=== PATIENT | female | born 1955 | race American Indian/Alaskan Native ===

== ENCOUNTER 2018-07-07 04:35 | Emergency (ER) | payer OTHER ==
[2018-07-07 04:49] VITALS: BP 102/67
[2018-07-07] MEDS ORDERED: IBUPROFEN PO ONE ×2 (05:15)
[2018-07-07] MEDS ORDERED: NORCO 5/325 ONE (05:15)
--- NOTE | 2018-07-07 05:29 | Emergency Department Report ---
ED Fall HPI - General Chief Complaint: Extremity Injury, Lower Stated Complaint: R ANKLE PAIN Source: patient Mode of arrival: Wheelchair - History of Present Illness Initial Comments: This is a 63-year-old -[place] female that presents to the emergency room with pain and swelling to right ankle status post fall 2 hours ago. Patient states she awoke to use the restroom and fell. Patient states right foot was wedged under vanity in restroom. She forced right foot out and noticed obvious deformity to the right lateral side of ankle. She applied ice for one hour with no improvement of swelling. States pain is worse with weightbearing. Patient denies hitting head, loss of consciousness, or paresthesia. 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 Place Fall Occurred: home Loss of Consciousness: none Prolonged Down Time?: no Symptoms Prior to Fall: none Location - Extremities: Right: Ankle Severity: severe Severity scale (0 -10): 10 Quality: aching Context: tripped/slipped Associated Symptoms: denies - Related Data Previous Rx's Medication Instructions Recorded Last Taken Type Ibuprofen [Motrin 800 MG tab] 800 mg PO Q8HR PRN #15 tablet 07/07/18 Unknown Rx traMADol [Ultram 50 MG tab] 50 mg PO Q6HR PRN #12 tablet 07/07/18 Unknown Rx Allergies Allergy/AdvReac Type Severity Reaction Status Date / Time No Known Allergies Allergy Verified 07/07/18 05:16 ED Review of Systems ROS: Stated complaint: R ANKLE PAIN Other details as noted in HPI Constitutional: denies: chills, fever Respiratory: denies: cough, shortness of breath, wheezing Cardiovascular: denies: chest pain, palpitations Gastrointestinal: denies: abdominal pain, nausea, diarrhea Musculoskeletal: joint swelling (right ankle), arthralgia (right ankle). denies: back pain Skin: denies: rash, lesions Neurological: denies: headache, weakness, paresthesias Psychiatric: denies: anxiety, depression ED Past Medical Hx - Past Medical History Previous Medical History?: No - Surgical History Past Surgical History?: Yes Additional Surgical History: hysterectomy. esophageal sx - Social History Smoking Status: Current Every Day Smoker Substance Use Type: Alcohol - Medications Home Medications: Home Medications Medication Instructions Recorded Confirmed Last Taken Type Ibuprofen [Motrin 800 MG tab] 800 mg PO Q8HR PRN #15 tablet 07/07/18 Unknown Rx traMADol [Ultram 50 MG tab] 50 mg PO Q6HR PRN #12 tablet 07/07/18 Unknown Rx ED Physical Exam - General Limitations: No Limitations General appearance: alert, in no apparent distress - Respiratory Respiratory exam: Present: normal lung sounds bilaterally. Absent: respiratory distress - Cardiovascular Cardiovascular Exam: Present: regular rate, normal rhythm. Absent: systolic murmur, diastolic murmur, rubs, gallop - GI/Abdominal GI/Abdominal exam: Present: soft, normal bowel sounds - Expanded Lower Extremity Exam Right Hip exam: Present: normal inspection, full ROM Upper Leg exam: Present: normal inspection, full ROM Knee exam: Present: normal inspection, full ROM Lower Leg exam: Present: normal inspection, full ROM Ankle exam: Present: tenderness (tenderness and swelling below the lateral malleolus), swelling, deformity, erythema. Absent: full ROM (Limited range of motion secondary pain), abrasion, laceration, ecchymosis, crepidus, dislocation, anterior draw sign Foot/Toe exam: Present: normal inspection, full ROM Neuro vascular tendon exam: Present: no vascular compromise Gait: Positive: observed and limited by pain - Neurological Exam Neurological exam: Present: alert, oriented X3 - Psychiatric Psychiatric exam: Present: normal affect, normal mood - Skin Skin exam: Present: warm, dry, intact, normal color. Absent: rash ED Course Vital Signs 07/07/18 04:38 Temperature 97.8 F Pulse Rate 96 H Respiratory 20 Rate Blood Pressure 102/67 O2 Sat by Pulse 100 Oximetry ED Medical Decision Making - Radiology Data Radiology results: report reviewed PROCEDURE: RIGHT ANKLE, 3 VIEWS TECHNIQUE: RIGHT ankle radiographs, AP, lateral, and oblique views. CPT 73517 HISTORY: Trauma COMPARISONS: None . FINDINGS: Fracture (s) and/or Dislocation(s): There is a fracture of the distal fibula. . Alignment: Normal . Joint space(s): There is slight widening of the medial aspect of the ankle mortise. . Soft tissues: There is mild generalized soft tissue swelling. There is no mass. . Bone mineralization: Normal . Foreign bodies: None . Calcaneal spurring: None . IMPRESSION: There is a fracture of the distal fibula. . There is slight widening of the medial aspect of the ankle mortise. . There is mild generalized soft tissue swelling. There is no mass. - Medical Decision Making Patient was examined by me. Vitals are normal and patient is in no acute distress. Moderate swelling and obvious deformity of the right lateral malleolus on focal exam. Given Gilliam 5/325 mg by mouth once a ER. Obtained a x-ray of right ankle. X-rays dictated by radiologist and report reviewed by myself. There is a fracture of the distal fibula. There is slight widening of the medial aspect of the ankle mortise. There is mild generalized soft tissue swelling. There is no mass. Patient informed of results. An anterior/posterior splint to the right lower extremity. Patient is to use some personal crutches. Instructed to start nonweightbearing to right lower extremity. Referral to orthopedics for continued care. Start ibuprofen and Tramadol for pain. Plan discussed with patient to discharge home and treat outpatient. He agrees with ER plan. Patient discharged home in stable condition. Follow up with PCP in 2-3 days. Critical care attestation.: If time is entered above; I have spent that time in minutes in the direct care of this critically ill patient, excluding procedure time. ED Disposition Clinical Impression: Acute right ankle pain Fracture of distal fibula Qualifiers: Encounter type: initial encounter Fracture type: closed Fracture morphology: other fracture Laterality: right Qualified Code(s): S82.831A - Other fracture of upper and lower end of right fibula, initial encounter for closed fracture Fall Qualifiers: Encounter type: initial encounter Qualified Code(s): W19.XXXA - Unspecified fall, initial encounter Disposition: TO HOME OR SELFCARE Is pt being admited?: No Does the pt Need Aspirin: No Condition: Stable Instructions: Ankle Fracture (ED), Arthralgia (ED) Additional Instructions: Keep splint dry and avoid putting anything inside. Start no weight to right leg. Follow up with Orthopedic surgeon from the referral list below. Return to the emergency room if increasing pain, numbness or tingling, change of color of toes, and toes cold to touch. Prescriptions: Ibuprofen [Motrin 800 MG tab] 800 mg PO Q8HR PRN #15 tablet PRN Reason: Pain, Moderate (4-6) traMADol [Ultram 50 MG tab] 50 mg PO Q6HR PRN #12 tablet PRN Reason: Pain Referrals: FAUZIA MILES MD [Primary Care Provider] - 3-5 Days AME ARCHER MD [Staff Physician] - 3-5 Days [facility] [Provider Group] - 3-5 Days [facility], [Provider Group] - 3-5 Days Time of Disposition: 05:51
--- NOTE | 2018-07-07 05:29 | XRay Report ---
PROCEDURE: RIGHT ANKLE, 3 VIEWS TECHNIQUE: RIGHT ankle radiographs, AP, lateral, and oblique views. CPT 48273 HISTORY: Trauma COMPARISONS: None . FINDINGS: Fracture (s) and/or Dislocation(s): There is a fracture of the distal fibula. . Alignment: Normal . Joint space(s): There is slight widening of the medial aspect of the ankle mortise. . Soft tissues: There is mild generalized soft tissue swelling. There is no mass. . Bone mineralization: Normal . Foreign bodies: None . Calcaneal spurring: None . IMPRESSION: There is a fracture of the distal fibula. . There is slight widening of the medial aspect of the ankle mortise. . There is mild generalized soft tissue swelling. There is no mass. . . This document is electronically signed by Larry Camacho MD., Jul 07 2018 05:27:12 AM ET
[2018-07-07] MEDS ORDERED: NORCO 5/325 PO ONE (05:58)
== END 2018-07-07 06:33 | disposition home or self-care (01) ==
LOC: ED 04:35
DX: S82.831A Other fracture of upper and lower end of right fibula, initial encounter for closed fracture (principal); W01.0XXA Fall on same level from slipping, tripping and stumbling without subsequent striking against object, initial encounter; Y93.89 Activity, other specified; Y92.89 Other specified places as the place of occurrence of the external cause; Y99.8 Other external cause status
CPT/HCPCS: 99283

== ENCOUNTER 2021-05-07 17:56 | Emergency (ER) | payer MEDICARE ==
[2021-05-07] MEDS ORDERED: KETOROLAC 30 MG/1 ML INJ IV ONE (18:23)
--- NOTE | 2021-05-07 18:23 | Emergency Department Report ---
Chief Complaint: Chest Pain Stated Complaint: CHEST PAIN/SHORTNESS OF BREATH - HPI History of Present Illness: Patient presents with right arm pain. She actually describes pain in the right anterior chest and right axillary area. She states that this is worse when she moves her right arm. It has been going on throughout the day. She has become short of breath. The pain does not radiate or migrate. There is no trauma. - ROS Review of Systems: No cough - Exam Vital Signs: Vital Signs 05/07/21 18:00 Temperature 98 F Pulse Rate 114 H Respiratory 16 Rate Blood Pressure 110/79 [Left] O2 Sat by Pulse 97 Oximetry Physical Exam: Well-developed, well-nourished female in no distress. She appears uncomfortable. There is tenderness with palpation of the right anterior chest and axillary area. Heart is regular rate. Lungs are clear. MSE screening note: Focused history and physical exam performed. Due to findings the following was ordered: Labs and x-ray have been ordered. PERC criteria cannot be utilized because the patient is 66. Age-adjusted D-dimer has been ordered. ED Disposition for MSE Condition: Stable
[2021-05-07 18:43] LABS: Hematocrit 34.6 % (30.3-42.9); Hemoglobin 11.7 gm/dl (10.1-14.3); Mean Corpuscular HGB Conc 34 % (30-34); Mean Corpuscular Volume 90 fl (79-97); Platelet Count 230 K/mm3 (140-440); Red Blood Count 3.84 M/mm3 (3.65-5.03)
--- NOTE | 2021-05-07 18:47 | XRay Report ---
XR chest routine 2V INDICATION / CLINICAL INFORMATION: r cp COMPARISON: None available. FINDINGS: SUPPORT DEVICES: None. HEART / MEDIASTINUM: No significant abnormality. LUNGS / PLEURA: Lungs are clear. Costophrenic sulci are sharp. No pneumothorax. ADDITIONAL FINDINGS: No significant additional findings. IMPRESSION: 1. No acute findings. Signer Name: Claudio Bain MD Signed: 05/07/2021 6:42 PM Workstation Name: [id number]
[2021-05-07 19:05] LABS: Alanine Aminotransferase 17 units/L (7-56); Albumin 4.2 g/dL (3.9-5); BUN/Creatinine Ratio 16; Blood Urea Nitrogen 14 mg/dL (7-17); Calcium 9.7 mg/dL (8.4-10.2); Hemolysis Index 20
--- NOTE | 2021-05-07 21:19 | Emergency Department Report ---
ED Chest Pain HPI - General Chief Complaint: Chest Pain Stated Complaint: CHEST PAIN/SHORTNESS OF BREATH Source: patient Mode of arrival: Ambulatory Limitations: No Limitations - History of Present Illness Initial Comments: 66-year-old female presents to the ED with right arm patient x 1 day . She states pain is currently 9 out of 10. She actually describes pain in the right a nterior chest and right axillary area. Patient states that the pain did not radiate or migrate. The pain is worse when she moves her right arm. It has been going on throughout the day. Patient has full range of motion. Patient denies any trauma. No Obvious deformity ,no obvious edema, no distracting injury noted. Patient complained of shortness of breath earlier but at the present time denies any shortness of breath. Patient is alert and oriented x3. No acute distress noted. No ill appearance noted. Severity scale (0 -10): 3 - Related Data Previous Rx's Medication Instructions Recorded Last Taken Type Ibuprofen [Motrin 800 MG tab] 800 mg PO Q8HR PRN #15 tablet 07/07/18 Unknown Rx traMADoL [Ultram 50 MG tab] 50 mg PO Q6HR PRN #12 tablet 07/07/18 Unknown Rx Acetaminophen/Codeine [Tylenol 1 tab PO Q6H PRN 3 Days #12 tab 05/07/21 Unknown Rx /Codeine # 3 tab] Cyclobenzaprine HCl [Flexeril 5 MG 5 mg PO TID 15 Days #30 tab 05/07/21 Unknown Rx TAB] Allergies Allergy/AdvReac Type Severity Reaction Status Date / Time No Known Allergies Allergy Verified 07/07/18 05:16 Heart Score - HEART Score History: Slightly suspicious EKG: Normal Age: > 65 Risk factors: 1-2 risk factors Troponin: < normal limit HEART Score: 3 - EKG Read Time Time EKG Completed: 18:05 EKG Read Time: 18:10 ED Review of Systems ROS: Stated complaint: CHEST PAIN/SHORTNESS OF BREATH Other details as noted in HPI Constitutional: denies: chills, fever Eyes: denies: eye pain, eye discharge, vision change ENT: denies: ear pain, throat pain Respiratory: shortness of breath. denies: cough, wheezing Cardiovascular: denies: chest pain, palpitations Endocrine: no symptoms reported Gastrointestinal: denies: abdominal pain, nausea, diarrhea Genitourinary: denies: urgency, dysuria, discharge Musculoskeletal: arthralgia. denies: back pain, joint swelling Skin: denies: rash, lesions Neurological: denies: headache, weakness, paresthesias Psychiatric: denies: anxiety, depression Hematological/Lymphatic: denies: easy bleeding, easy bruising ED Past Medical Hx - Surgical History Additional Surgical History: hysterectomy. esophageal sx - Social History Smoking Status: Current Every Day Smoker Substance Use Type: Alcohol - Medications Home Medications: Home Medications Medication Instructions Recorded Confirmed Last Taken Type Ibuprofen [Motrin 800 MG tab] 800 mg PO Q8HR PRN #15 tablet 07/07/18 Unknown Rx traMADoL [Ultram 50 MG tab] 50 mg PO Q6HR PRN #12 tablet 07/07/18 Unknown Rx Acetaminophen/Codeine [Tylenol 1 tab PO Q6H PRN 3 Days #12 tab 05/07/21 Unknown Rx /Codeine # 3 tab] Cyclobenzaprine HCl [Flexeril 5 MG 5 mg PO TID 15 Days #30 tab 05/07/21 Unknown Rx TAB] ED Physical Exam - General Limitations: No Limitations General appearance: alert, in no apparent distress - Head Head exam: Present: atraumatic, normocephalic - Eye Eye exam: Present: normal appearance - ENT ENT exam: Present: mucous membranes moist - Neck Neck exam: Present: normal inspection - Respiratory Respiratory exam: Present: normal lung sounds bilaterally. Absent: respiratory distress - Cardiovascular Cardiovascular Exam: Present: regular rate, normal rhythm. Absent: systolic murmur, diastolic murmur, rubs, gallop - GI/Abdominal GI/Abdominal exam: Present: soft, normal bowel sounds - Extremities Exam Extremities exam: Present: normal inspection - Expanded Upper Extremity Exam Right Shoulder Exam: Present: normal inspection Upper Arm exam: Present: normal inspection, full ROM. Absent: tenderness, swelling - Back Exam Back exam: Present: normal inspection - Neurological Exam Neurological exam: Present: alert, oriented X3 - Psychiatric Psychiatric exam: Present: normal affect, normal mood - Skin Skin exam: Present: warm, dry, intact, normal color. Absent: rash ED Course Vital Signs 05/07/21 05/07/21 18:00 21:38 Temperature 98 F 98.0 F Pulse Rate 114 H 99 H Respiratory 16 Rate Blood Pressure 130/85 Blood Pressure 110/79 [Left] O2 Sat by Pulse 97 99 Oximetry ED Medical Decision Making - Lab Data Result diagrams: 05/07/21 18:31 05/07/21 18:31 - EKG Data Rate: tachycardia - Medical Decision Making 66-year-old female presents to the ED with right arm patient x 1 day . She states pain is currently 9 out of 10. She actually describes pain in the right anterior chest and right axillary area. Patient states that the pain did not radiate or migrate. The pain is worse when she moves her right arm. It has been going on throughout the day. Patient has full range of motion. Patient denies any trauma. No Obvious deformity ,no obvious edema, no distracting injury noted. Patient complained of shortness of breath earlier but at the present time denies any shortness of breath. Patient is alert and oriented x3. No acute distress noted. No ill appearance noted. Patient given Toradol 15 mg with relief. EKG sinus tach 112. At Time of discharge patient states that pain level was 0 out of 10. Patient heart rate was 89 time of discharge .O2 sat 100% .discussed plan of care with Dr. Macias . 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 Rechecked the patient is resting quietly quietly and comfortable and feeling better. I discussed the results of diagnostic study, my clinical impression and the plan for further treatment with the patient. Patient agrees with plan and discharge at this present time. All question addressed. I have given the patient instruction regarding a diagnosis ,expectation ,follow- up and return precaution. I explained to the patient that emergent condition may arise and to return to the ED for new worsen and any new persisting condition. I have explained the importance of following up with the primary care physician or referral physician listed below has instructed. The patient verbalized understanding of discharge instruction. Critical care attestation.: If time is entered above; I have spent that time in minutes in the direct care of this critically ill patient, excluding procedure time. ED Disposition Clinical Impression: Right anterior shoulder pain, Chest pain in adult Disposition: HOME / SELF CARE / HOMELESS Is pt being admited?: No Does the pt Need Aspirin: No Condition: Stable Instructions: Chest Wall Pain, [id number], Nonspecific Chest Pain, Adult, How to Use Cold Therapy, Joint Pain Additional Instructions: keep appointment with [facility] on Thursday Return to ED for any worsening symptom Prescriptions: Cyclobenzaprine HCl [Flexeril 5 MG TAB] 5 mg PO TID 15 Days #30 tab Acetaminophen/Codeine [Tylenol /Codeine # 3 tab] 1 tab PO Q6H PRN 3 Days #12 tab PRN Reason: Pain, Moderate (4-6) Referrals: FAUZIA MILES MD [Primary Care Provider] - 3-5 Days
[2021-05-07 21:39] VITALS: BP 130/85
--- NOTE | 2021-05-09 13:12 | Electrocardiograph Report ---
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
== END 2021-05-07 21:42 | disposition home or self-care (01) ==
LOC: ED 17:56
DX: R07.9 Chest pain, unspecified (principal); M25.511 Pain in right shoulder; F17.200 Nicotine dependence, unspecified, uncomplicated
CPT/HCPCS: 36415; 71046; 80053; 83690; 84484; 85027; 85379; 93005; 93010; 96374; 99284; J1885